=== PATIENT | female | born 1940 | race Two or more races ===

== ENCOUNTER 2022-04-14 06:21 | Day surgery (SDC) | payer OTHER ==
[~2022-04-14 06:21] MED LIST: COZAAR50 MG PO; HORIZANT300 MG PO; HYDRODIURIL12.5 MG PO; RAZADYNE ER16 MG PO; SIMVASTATIN; VERELAN120 MG PO; ZYLOPRIM100 M1 PO
[2022-04-14] MEDS ORDERED: PERCOCET 5-3251 EACH PO (11:21)
== END 2022-04-14 16:30 | disposition home or self-care (01) ==
LOC: CIR.AMB 06:21
PROVIDERS: ATTEND Surgery
DX: K64.8 Other hemorrhoids (principal); K64.4 Residual hemorrhoidal skin tags; K62.5 Hemorrhage of anus and rectum; K62.89 Other specified diseases of anus and rectum; D64.9 Anemia, unspecified; I10 Essential (primary) hypertension; E78.5 Hyperlipidemia, unspecified; Z20.822 Contact with and (suspected) exposure to COVID-19

== ENCOUNTER 2023-01-20 05:51 | Day surgery (SDC) | payer OTHER ==
[~2023-01-20 05:51] MED LIST changes: +PERCOCET 5-3251 EACH PO
== END 2023-01-20 10:00 | disposition home or self-care (01) ==
LOC: AMB-ENDOS 05:51
PROVIDERS: ATTEND Surgery
DX: D12.4 Benign neoplasm of descending colon (principal); K62.5 Hemorrhage of anus and rectum; K57.30 Diverticulosis of large intestine without perforation or abscess without bleeding; K64.2 Third degree hemorrhoids; K64.4 Residual hemorrhoidal skin tags; K62.89 Other specified diseases of anus and rectum; Z20.822 Contact with and (suspected) exposure to COVID-19